=== PATIENT | female | born 1970 | race Caucasian/White ===

== ENCOUNTER 2017-07-22 04:32 | Emergency (ER) | payer OTHER, BC ==
[~2017-07-22] VITALS: Ht 152.4 cm; Wt 91.0 kg
[~2017-07-22 04:32] MED LIST: COMBIVIR1 TABLET PO; NO HOME MEDS; ZOFRAN ODT4 MG PO
[2017-07-22 05:09] VITALS: BP 123/101
== END 2017-07-22 05:10 | disposition home or self-care (01) ==
LOC: EME 04:32
DX: S61.032A Puncture wound without foreign body of left thumb without damage to nail, initial encounter (principal); Z57.8 Occupational exposure to other risk factors; W46.1XXA Contact with contaminated hypodermic needle, initial encounter; Y99.0 Civilian activity done for income or pay; Y92.149 Unspecified place in prison as the place of occurrence of the external cause
CPT/HCPCS: 99281; 99283